=== PATIENT | female | born 2000 | race Caucasian/White ===

== ENCOUNTER 2021-03-07 14:21 | Emergency (ER) | payer MEDICAID ==
--- NOTE | 2021-03-07 18:16 | EDM.PDOC ---
ED HPI GENERAL MEDICAL PROBLEM - General Chief Complaint: Lower Extremity Injury/Pain Stated Complaint: R LEG PAIN/SWELLING Time Seen by Provider: 03/07/21 16:45 Source of Information: Reports: Patient History Limitations: Reports: No Limitations - History of Present Illness INITIAL COMMENTS - FREE TEXT/NARRATIVE: 20-year-old female presents the emergency department today with complaints of warmth and swelling noted to her right lateral distal thigh just lateral and above the patella. Patient states that approximately a week ago she developed pain noted to the dorsal aspect of her right foot. She states that the pain then moved up to the lateral portion of her right ankle and has since settled in her right distal lateral thigh. She also notes warmth to this area. She states she does not recall injuring this area. She also notes that she has pain noted to her bilateral hands that started today. She denies any recent fever, chills, nausea, vomiting or diarrhea. She states she does have increasing shortness of breath with ambulation that she has noted over the past few days. She states that she is otherwise healthy. She does take an oral contraceptive. She does not smoke. She does have a BMI of 30.9. Right Leg Pain Score (Numeric/FACES): 8 - Related Data Allergies Allergy/AdvReac Type Severity Reaction Status Date / Time ibuprofen [From Advil] Allergy Intermediate Rash Verified 03/07/21 15:32 Home Meds: Home Meds Sertraline [Zoloft] 50 mg PO BEDTIME 03/07/21 [History] Past Medical History HEENT History: Reports: Other (See Below) Other HEENT History: dental surgery teeth pulled Cardiovascular History: Reports: None Respiratory History: Reports: None Gastrointestinal History: Reports: None Genitourinary History: Reports: None SMASHER History: Reports: None Musculoskeletal History: Reports: None Neurological History: Reports: None Psychiatric History: Reports: Anxiety, Depression Endocrine/Metabolic History: Reports: None Hematologic History: Reports: None Immunologic History: Reports: None Oncologic (Cancer) History: Reports: None Dermatologic History: Reports: None - Past Surgical History Head Surgeries/Procedures: Reports: None Oncologic Surgical History: Reports: None Social & Family History - Tobacco Use Tobacco Use Status *Q: Never Tobacco User Second Hand Smoke Exposure: No - Caffeine Use Caffeine Use: Reports: Coffee Caffeine Use Comment: one cup every other day - Recreational Drug Use Recreational Drug Use: No Review of Systems - Review of Systems Review Of Systems: Comprehensive ROS is negative, except as noted in HPI. ED EXAM, GENERAL - Physical Exam Exam: See Below Exam Limited By: No Limitations General Appearance: Alert, WD/WN, No Apparent Distress Ears: Normal External Exam, Hearing Grossly Normal Nose: Normal Inspection Throat/Mouth: Normal Inspection, Normal Lips, Normal Voice Head: Atraumatic Neck: Normal Inspection, Supple Respiratory/Chest: No Respiratory Distress, Lungs Clear, Normal Breath Sounds, No Accessory Muscle Use, Chest Non-Tender Cardiovascular: Normal Peripheral Pulses, Regular Rate, Rhythm, No Edema, No Murmur Peripheral Pulses: 2+: Radial (L), Radial (R), Dorsalis Pedis (L), Dorsalis Pedis (R) GI/Abdominal: Normal Bowel Sounds, Soft, Non-Tender, No Distention (Female) Exam: Deferred Rectal (Female) Exam: Deferred Back Exam: Normal Inspection Extremities: Normal Inspection, Normal Range of Motion, Non-Tender, No Pedal Edema, Normal Capillary Refill Neurological: Alert, Oriented, Normal Cognition Psychiatric: Normal Affect, Normal Mood Skin Exam: Dry, Intact, Normal Color, No Rash. No: Warm (Increased warmth noted to right lateral distal thigh area) Lymphatic: No Adenopathy Course - Vital Signs Text/Narrative:: Upon exam, the patient does have good pedal pulses noted bilaterally. She has good CMS noted to her bilateral feet. She denies any pain and I do not appreciate any swelling noted to bilateral feet or ankles. She does have, how ever, increased warmth noted to the area of swelling on her distal lateral thigh just above and lateral to her kneecap when compared to the same area on her left leg. Physical exam is otherwise unremarkable. My concern would be for her to have a DVT due to the fact that she is obese and taking oral contraceptives. Discussed the case with the patient and her mother. Will obtain lab studies to include a CBC, CMP, magnesium, C-reactive protein and a D-dimer. Pending the D-dimer is elevated will obtain an ultrasound of the right lower extremity. Last Recorded V/S: Last Vital Signs Temp 97.6 F 03/07/21 15:20 Pulse 80 03/07/21 15:20 Resp 16 03/07/21 15:20 BP 141/100 H 03/07/21 15:20 Pulse Ox 99 1030/21 15:20 - Orders/Labs/Meds Orders: Active Orders 24 hr Category Date Time Status VL Duplex Lwr Ext Veins Ltd Rt [US] Stat Exams 03/07/21 19:04 Taken Labs: Laboratory Tests 03/07/21 03/07/21 03/07/21 Range/Units 18:20 18:20 18:20 WBC 7.39 (3.98-10.04) K/mm3 RBC 4.95 (3.98-5.22) M/mm3 Hgb 12.7 (11.2-15.7) gm/dl Hct 40.1 (34.1-44.9) % MCV 81.0 (79.4-94.8) fl MCH 25.7 (25.6-32.2) pg MCHC 31.7 L (32.2-35.5) g/dl RDW Std Deviation 43.7 (36.4-46.3) fL Plt Count 324 (182-369) K/mm3 MPV 9.9 (9.4-12.3) fl Neut % (Auto) 60.5 (34.0-71.1) % Lymph % (Auto) 30.9 (19.3-51.7) % [place] % (Auto) 6.1 (4.7-12.5) % Eos % (Auto) 2.2 (0.7-5.8) Baso % (Auto) 0.3 (0.1-1.2) % Neut # (Auto) 4.48 (1.56-6.13) K/mm3 Lymph # (Auto) 2.28 (1.18-3.74) K/mm3 [place] # (Auto) 0.45 H (0.24-0.36) K/mm3 Eos # (Auto) 0.16 (0.04-0.36) K/mm3 Baso # (Auto) 0.02 (0.01-0.08) K/mm3 D-Dimer, Quantitative 1.10 H (0.19-0.50) mg/L Sodium 137 (136-145) mEq/L Potassium 3.7 (3.5-5.1) mEq/L Chloride 103 (98-107) mEq/L Carbon Dioxide 24 (21-32) mEq/L Anion Gap 13.7 (5-15) BUN 9 (7-18) mg/dL Creatinine 0.7 (0.55-1.02) mg/dL Est Cr Clr Drug Dosing 111.62 mL/min Estimated GFR (MDRD) > 60 (>60) mL/min BUN/Creatinine Ratio 12.9 L (14-18) Glucose 88 (70-99) mg/dL Uric Acid (2.6-6.0) mg/dL Calcium 8.6 (8.5-10.1) mg/dL Magnesium 2.0 (1.8-2.4) mg/dL Total Bilirubin 0.2 (0.2-1.0) mg/dL AST 16 (15-37) U/L ALT 15 (14-59) U/L Alkaline Phosphatase 109 (46-116) U/L C-Reactive Protein 4.1 H* (<1.0) mg/dL Total Protein 7.9 (6.4-8.2) g/dl Albumin 3.5 (3.4-5.0) g/dl Globulin 4.4 gm/dL Albumin/Globulin Ratio 0.8 L (1-2) 03/07/ Range/Units 18:20 WBC (3.98-10.04) K/mm3 RBC (3.98-5.22) M/mm3 Hgb (11.2-15.7) gm/dl Hct (34.1-44.9) % MCV (79.4-94.8) fl MCH (25.6-32.2) pg MCHC (32.2-35.5) g/dl RDW Std Deviation (36.4-46.3) fL Plt Count (182-369) K/mm3 MPV (9.4-12.3) fl Neut % (Auto) (34.0-71.1) % Lymph % (Auto) (19.3-51.7) % [place] % (Auto) (4.7-12.5) % Eos % (Auto) (0.7-5.8) Baso % (Auto) (0.1-1.2) % Neut # (Auto) (1.56-6.13) K/mm3 Lymph # (Auto) (1.18-3.74) K/mm3 [place] # (Auto) (0.24-0.36) K/mm3 Eos # (Auto) (0.04-0.36) K/mm3 Baso # (Auto) (0.01-0.08) K/mm3 D-Dimer, Quantitative (0.19-0.50) mg/L Sodium (136-145) mEq/L Potassium (3.5-5.1) mEq/L Chloride (98-107) mEq/L Carbon Dioxide (21-32) mEq/L Anion Gap (5-15) BUN (7-18) mg/dL Creatinine (0.55-1.02) mg/dL Est Cr Clr Drug Dosing mL/min Estimated GFR (MDRD) (>60) mL/min BUN/Creatinine Ratio (14-18) Glucose (70-99) mg/dL Uric Acid 5.9 (2.6-6.0) mg/dL Calcium (8.5-10.1) mg/dL Magnesium (1.8-2.4) mg/dL Total Bilirubin (0.2-1.0) mg/dL AST (15-37) U/L ALT (14-59) U/L Alkaline Phosphatase (46-116) U/L C-Reactive Protein (<1.0) mg/dL Total Protein (6.4-8.2) g/dl Albumin (3.4-5.0) g/dl Globulin gm/dL Albumin/Globulin Ratio (1-2) - Re-Assessments/Exams Free Text/Narrative Re-Assessment/Exam: 03/07/21 19:09 Hematology reveals a WBC of 7.39, hemoglobin 12.7, hematocrit 40.1, platelet count 324 D-dimer 1.10 Chemistry reveals a sodium of 137, potassium 3.7, carbon dioxide 24, anion gap 13.7, BUN 9, creatinine 0.7, glucose 88, uric acid 5.9, magnesium 2.0, C- reactive protein 4.1 We will obtain an ultrasound of the right lower extremity to rule out DVT. Discussed this with the patient and her mother and did notify them that this could also be caused by a superficial phlebitis as well. Will await radiologist impression of ultrasound. 03/07/21 20:44 [facility] Radiologist impression ultrasound duplex right lower extremity veins, limited: No evidence of deep vein thrombosis. Results were discussed with the patient and her mother and she will be discharged home with recommendations that when she is at home she keep her feet elevated and use warm moist heat to the area. May take ibuprofen 600 mg every 6-8 hours as needed for pain and inflammation. If she is not feeling better in about a week it is recommended that she follow-up with her primary care provider. Departure - Departure Time of Disposition: 20:46 Disposition: Home, Self-Care 01 Condition: Good Clinical Impression: Localized swelling of right lower extremity - Discharge Information Instructions: Pain Medicine Instructions, [id number] Referrals: PCP,None [Primary Care Provider] - Forms: ED Department Discharge Additional Instructions: You were seen in the emergency department this evening with complaints of pain to your right foot that has progressed your ankle and then your distal thigh. Swelling and heat noted to this area. Lab studies were completed which were essentially unremarkable however D-dimer was slightly elevated so an ultrasound was ordered. No evidence of a blood clot in the right leg. This could very likely be a superficial thrombophlebitis. Recommend going home and resting. When not at work elevate legs. May use moist warm heat to the area. Take ibuprofen 600 mg every 6-8 hours or Aleve 2 tabs every 12 hours as needed for inflammation and discomfort. If you are not better in about 1 week recommend follow-up with the clinic with a primary care provider. Sepsis Event Note (ED) - Evaluation Sepsis Screening Result: No Definite Risk - Focused Exam Vital Signs: Vital Signs Temp Pulse Resp BP Pulse Ox 03/07/21 15:20 97.6 F 80 16 141/100 H 99 - My Orders Last 24 Hours: My Active Orders 03/07/21 19:04 VL Duplex Lwr Ext Veins Ltd Rt [US] Stat - Assessment/Plan Last 24 Hours: My Active Orders 03/07/21 19:04 VL Duplex Lwr Ext Veins Ltd Rt [US] Stat
--- NOTE | 2021-03-08 07:58 | US ---
Right lower extremity deep venous ultrasound: Duplex and color Doppler evaluation was obtained of the right common femoral, proximal greater saphenous, superficial femoral, popliteal, posterior tibial and peroneal veins. Comparison: No prior venous study is available. Findings: Visualized veins show normal phasic flow, augmentation and compression. Fluid collection is seen anteriorly around the kneecap presumably representing either joint effusion or superficial fluid collection. This fluid collection measures 11.2 x 2.4 x 6.7 cm. Impression: 1. Anterior fluid collection as described above. 2. No findings of deep venous thrombosis are seen within the right lower extremity. Diagnostic code #3 I agree with preliminary report from [facility], finalized on 03/07/21, 9:32 PM CDT, code 1
== END 2021-03-07 21:03 | disposition home or self-care (01) ==
LOC: JD.ED 14:21
DX: M79.89 Other specified soft tissue disorders (principal); Z88.8 Allergy status to other drugs, medicaments and biological substances
CPT/HCPCS: 36415; 80053; 83735; 84550; 85025; 85379; 86140; 93971-26-RT; 93971-RT; 99284-25